=== PATIENT | male | born 1970 | race Caucasian/White ===

== ENCOUNTER 2016-10-18 01:06 | Emergency (ER) | payer SELFPAY ==
[~2016-10-18 01:06] MED LIST: CEPH500C3 PO; CYCL-36 PO; DICL50 PO; DILA2TAB4 PO; DOXY100T18 PO
[2016-10-18 01:09] VITALS: BP 131/86; PULSE 78; RESP 18; TEMP 98.4; O2SAT 96
[2016-10-18] MEDS ORDERED: CLINDAMYCIN PHOS 600 MG/4 ML VIAL IM ONE (02:15)
--- NOTE | 2016-10-18 02:15 | PD ---
HPI Chief Complaint: Injury Time Seen by Provider: 02:14 Travel History International Travel<30 days: No Contact w/Intl Traveler<30days: No Traveled to known affect area: No History of Present Illness HPI Patient comes in complaining of possible insect bite to his right index finger distal phalanx. Patient states this occurred 2 days ago. He states it seemed fine until today when it started becoming swollen and painful. Patient denies doing anything for this. Denies anything making it better or worse. Denies any radiation of pain. Denies any fevers. Reports his tetanus shot is up-to- date. Sclerae pain is throbbing like in nature. Denies any known injury/ trauma or previous episodes like this. PFSH Past Medical History Medical History: Denies Significant Hx Cancer: No Cardiovascular Problems: No Diminished Hearing: No Endocrine: No Genitourinary: No Immune Disorder: No Musculoskeletal: No Neurologic: No Psychiatric: No Reproductive: No Respiratory: No Past Surgical History Abdominal Surgery: No AICD: No Arteriovenous Shunt: No Cardiac Surgery: No Ear Surgery: No Endocrine Surgery: No Eye Surgery: No Genitourinary Surgery: No Gynecologic Surgery: Yes Insulin Pump: No Joint Replacement: No Oral Surgery: No Pacemaker: No Thoracic Surgery: No Other Surgery: Yes (3 SURGERIES TO RT ARM 20 TO SIMULAR ABSCESS) Social History Alcohol Use: Yes (RARE) Tobacco Use: Yes (1/2 PPD ) Substance Use: Yes (METHAMPHETAMINES USE IN PAST ) Allergies-Medications (Allergen,Severity, Reaction): Coded Allergies: No Known Allergies (Unverified , 10/16/13) Reported Meds & Prescriptions Reported Meds & Active Scripts Active Bactrim DS (Sulfamethoxazole-Trimethoprim) 800-160 Mg Tab 1 Tab PO BID Flexeril (Cyclobenzaprine HCl) 10 Mg Tab 10 Mg PO TID Voltaren (Diclofenac Sodium) 50 Mg Tabec 50 Mg PO TID Reported Dilaudid (Hydromorphone HCl) 2 Mg Tab 2 Mg PO Q4H PRN Doxycycline Monohydrate 100 mg 100 Mg Cap 100 Mg PO BID 10 Days Keflex (Cephalexin Monohydrate) 500 Mg Cap 500 Mg PO Q6 10 Days Review of Systems Except as stated in HPI: all other systems reviewed are Neg Physical Exam Narrative GENERAL: Well-developed, overly nourished, in no acute distress, and non-ill appearing. SKIN: Patient has what appears to be effective blister distal phalanx of his right index finger lateral aspect going into the padding. Patient reports tenderness. There is small amount of fluid collection underneath it. There is no crepitus or obvious deformity. Neurovascularly intact. Full range of motion affected finger. HEAD: Atraumatic. Normocephalic. EYES: Pupils equal and round. EOMI. No scleral icterus. No injection or drainage. ENT: No nasal bleeding or discharge. Mucous membranes pink and moist. NECK: Trachea midline. Supple. No nuclear rigidity. CARDIOVASCULAR: Capillary refill less than 2 seconds. RESPIRATORY: No accessory muscle use. No respiratory distress. MUSCULOSKELETAL: No obvious deformities. No clubbing. No cyanosis. No edema. Full range of motion. NEUROLOGICAL: Awake and alert. No obvious cranial nerve deficits. Motor grossly within normal limits. Normal speech. PSYCHIATRIC: Appropriate mood and affect; insight and judgment normal. Data Data Last Documented VS Vital Signs Date Time Temp Pulse Resp B/P Pulse Ox O2 Delivery O2 Flow Rate FiO2 10/18/16 01:09 98.4 78 18 131/86 96 Room Air Orders Wound Culture And Gram Stain (10/18/16 02:13) Clindamycin Inj (Cleocin Inj) (10/18/16 02:15) MDM Medical Decision Making Medical Screen Exam Complete: Yes Emergency Medical Condition: Yes Differential Diagnosis Paronychia, felon, infected blister, burn, other Narrative Course While in room patient Playing with blister on right index finger and ruptured it. Patient reports drainage from this that alleviate a lot of his pain symptoms. There is no evidence of necrotizing fasciitis at this time. There is no evidence of abscess. There is no evidence of local joint space involvement. The patient will be discharged on antibiotics. The patient was given signs and symptoms warnings for worsening infection, such as spreading of redness, increasing pain, and/or swelling, associated heat, or fever and instructed to return immediately if these signs or symptoms worsen. The patient is to follow up here in 12-24 hours for recheck. Sooner if worsens or as needed. The patient agrees with plan. Patient in no obvious distress upon re-evaluation. Patient was asked if they wanted to speak to my attending, which the patient did not wish to do at this time. Any questions/concerns in reference to patient diagnosis/condition discussed and clarified prior to patient's discharge. Reinforced sheer importance of close follow up here in12-24 hours for recheck. Instructed patient to return to ED immediately, if symptoms return/worsen. Pt showed understanding of above instructions. Further instructions and recommendations were detailed in discharge paperwork. Pt ambulated without difficulty out of ED at discharge. Diagnosis Primary Impression: Finger, blister, infected Patient Instructions: Blister (ED), General Instructions, Wound Infection (ED) Additional Instructions: Follow-up here in 12-24 hours for a recheck. Take all medication as prescribed. Keep wound dry and clean as possible using soap and water. Use Neosporin to promote healing. Do not soak or submerge wound. Return to the emergency department sooner if symptoms get worse. Med/Other Pt SpecificInfo: Prescription(s) given Scripts Cephalexin (Keflex)500 Mg Icc188 Mg PO Q8H #30 CAP Ref 0 Prov:Kathryn Mi DO 10/18/16 Sulfamethoxazole-Trimethoprim (Bactrim DS)800-160 Mg Tab1 Tab PO BID #20 TAB Ref 0 Prov:Kathryn Mi DO 10/18/16 Disposition: 01 DISCHARGE HOME Condition: Stable Vasu Blood Oct 18, 2016 02:15
[2016-10-18] MEDS ORDERED: BACT800T5 PO (03:00)
[2016-10-18] MEDS ORDERED: CEPH-460 PO (03:00)
== END 2016-10-18 04:52 | disposition home or self-care (01) ==
LOC: NEPD 01:06
DX: S60.420A Blister (nonthermal) of right index finger, initial encounter (principal); L08.9 Local infection of the skin and subcutaneous tissue, unspecified; B95.62 Methicillin resistant Staphylococcus aureus infection as the cause of diseases classified elsewhere; B95.0 Streptococcus, group A, as the cause of diseases classified elsewhere; F17.200 Nicotine dependence, unspecified, uncomplicated; X58.XXXA Exposure to other specified factors, initial encounter
CPT/HCPCS: 86403; 87070; 87186; 96372

== ENCOUNTER 2016-10-18 17:35 | Emergency (ER) | payer SELFPAY ==
[~2016-10-18 17:35] MED LIST changes: +BACT800T5 PO; +CEPH-460 PO
[2016-10-18 17:50] VITALS: BP 136/82; PULSE 68; RESP 20; TEMP 97.8; O2SAT 98
--- NOTE | 2016-10-18 18:00 | PD ---
Physical Exam Time Seen by Provider: 17:59 Narrative 46 y/o male here with intermittent chest pain since yesterday evening. Vital signs reviewed. Seen at triage desk. Awaiting bed placement. Data Data Last Documented VS Vital Signs Date Time Temp Pulse Resp B/P Pulse Ox O2 Delivery O2 Flow Rate FiO2 10/18/16 17:50 97.8 68 20 136/82 98 Room Air [facility] Medical Record Reviewed: Yes Supervised Visit with TORRIE: Jose Johnson Oct 18, 2016 18:00
--- NOTE | 2016-10-19 14:49 | EKG ---
Date Performed: 10/18/2016 Time Performed: 18:06:42 PTAGE: 46 years EKG: Sinus rhythm NORMAL ECG PREVIOUS TRACING : 08/26/2013 16.25 Compared to prior tracing no significant change DOCTOR: Ezra Hood Interpretating Date/Time 10/19/2016 14:47:15
== END 2016-10-18 18:35 | disposition left against medical advice (07) ==
LOC: NEDAMB 17:35
DX: R07.9 Chest pain, unspecified (principal)
CPT/HCPCS: 93005; 99281

== ENCOUNTER 2017-09-08 21:45 | Emergency (ER) | payer SELFPAY ==
[~2017-09-08] VITALS: Ht 180.3 cm; Wt 91.0 kg
[2017-09-08] MEDS ORDERED: IOHEXOL 350 MG/ML 10 ML VIAL (for RAD DIAG) IVCONTRAST ONE (21:46)
[2017-09-08 22:12] VITALS: RESP 18
--- NOTE | 2017-09-08 22:43 | PD ---
HPI Chief Complaint: Abdominal Pain Time Seen by Provider: 22:26 Travel History International Travel<30 days: No Contact w/Intl Traveler<30days: No Traveled to known affect area: No History of Present Illness HPI Patient is a 47-year-old male who presents the emergency room with complaints of "double hernia" pain. Patient reports that 2 months ago, he noticed that he had bilateral inguinal hernias, reports that he was seen in the residential and was told that when he was released, he should go "get it checked out and fix." Patient reports that he was released from the residential last week and would like to have his hernias surgically repaired today. Patient reports that he has been having increased pains to his hernia sites, denies any radiation of pain. Denies n/v with symptoms. Denies fever/chills. Reports that he has no insurance and needs to have this fixed here. PFSH Past Medical History Medical History: Denies Significant Hx Cancer: No Cardiovascular Problems: No Diminished Hearing: No Endocrine: No Genitourinary: No Immune Disorder: No Musculoskeletal: No Neurologic: No Psychiatric: No Reproductive: No Respiratory: No Tetanus Vaccination: < 5 Years Influenza Vaccination: No Past Surgical History Abdominal Surgery: No AICD: No Arteriovenous Shunt: No Cardiac Surgery: No Ear Surgery: No Endocrine Surgery: No Eye Surgery: No Genitourinary Surgery: No Gynecologic Surgery: Yes Insulin Pump: No Joint Replacement: No Oral Surgery: No Pacemaker: No Thoracic Surgery: No Other Surgery: Yes (3 SURGERIES TO RT ARM 20 TO SIMULAR ABSCESS) Social History Alcohol Use: Yes (RARE) Tobacco Use: Yes (1/2 PPD ) Substance Use: Yes (METHAMPHETAMINES USE IN PAST ) Allergies-Medications (Allergen,Severity, Reaction): Coded Allergies: *MDRO Multi-Drug Resistant Organism (Verified Adverse Reaction, Unknown, ) 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/18/16 Reported Meds & Prescriptions Reported Meds & Active Scripts Active Review of Systems General / Constitutional: No: Fever, Chills Eyes: No: Visual changes HENT: No: Headaches Cardiovascular: No: Chest Pain or Discomfort Respiratory: No: Shortness of Breath Gastrointestinal: No: Abdominal Pain Genitourinary: Positive: Other (bilateral inguinal hernia), No: Dysuria Musculoskeletal: No: Pain Skin: No Rash Neurologic: No: Weakness Psychiatric: No: Depression Endocrine: No: Polydipsia Hematologic/Lymphatic: No: Easy Bruising Physical Exam Narrative GENERAL: NAD SKIN: Focused skin assessment warm/dry. HEAD: Atraumatic. Normocephalic. EYES: Pupils equal and round. No scleral icterus. No injection or drainage. ENT: No nasal bleeding or discharge. Mucous membranes pink and moist. NECK: Trachea midline. No JVD. CARDIOVASCULAR: Regular rate and rhythm. No murmur appreciated. RESPIRATORY: No accessory muscle use. Clear to auscultation. Breath sounds equal bilaterally. GASTROINTESTINAL: Abdomen soft, non-tender, nondistended. Hepatic and splenic margins not palpable. : Exam performed with RN at bedside. Patient with reducible right-sided inguinal hernia, patient with a nonreducible left sided inguinal hernia with no signs of incarceration. MUSCULOSKELETAL: No obvious deformities. No clubbing. No cyanosis. No edema. NEUROLOGICAL: Awake and alert. No obvious cranial nerve deficits. Motor grossly within normal limits. Normal speech. PSYCHIATRIC: Appropriate mood and affect; insight and judgment normal. Data Data Last Documented VS Vital Signs Date Time Temp Pulse Resp B/P (MAP) Pulse Ox O2 Delivery O2 Flow Rate FiO2 09/08/17 22:12 18 Orders Orders Complete Blood Count With Diff (09/08/17 22:34) Comprehensive Metabolic Panel (09/08/17 22:34) Iv Access Insert/Monitor (09/08/17 22:34) Sodium Chloride 0.9% Flush (Ns Flush) (09/08/17 22:45) Acetaminophen (Tylenol) (09/08/17 23:15) Al-Mag Hy-Si 40-40-4 Mg/Ml Liq (Mag-Al P (09/08/17 23:15) Lidocaine 2% Viscous (Xylocaine 2% Visco (09/08/17 23:15) Ct Abd/Pel W Iv Contrast(Rout) (09/09/17 ) Iohexol 350 Inj (Omnipaque 350 Inj) (09/08/17 21:46) Labs Laboratory Tests Test 09/08/17 22:57 White Blood Count 6.8 TH/MM3 Red Blood Count 3.59 MIL/MM3 Hemoglobin 10.6 GM/DL Hematocrit 30.8 % Mean Corpuscular Volume 85.8 FL Mean Corpuscular Hemoglobin 29.6 PG Mean Corpuscular Hemoglobin Concent 34.5 % Red Cell Distribution Width 14.3 % Platelet Count 337 TH/MM3 Mean Platelet Volume 7.4 FL Neutrophils (%) (Auto) 67.4 % Lymphocytes (%) (Auto) 22.1 % Monocytes (%) (Auto) 9.3 % Eosinophils (%) (Auto) 0.6 % Basophils (%) (Auto) 0.6 % Neutrophils # (Auto) 4.5 TH/MM3 Lymphocytes # (Auto) 1.5 TH/MM3 Monocytes # (Auto) 0.6 TH/MM3 Eosinophils # (Auto) 0.0 TH/MM3 Basophils # (Auto) 0.0 TH/MM3 CBC Comment DIFF FINAL Differential Comment Blood Urea Nitrogen 7 MG/DL Creatinine 1.08 MG/DL Random Glucose 114 MG/DL Total Protein 7.1 GM/DL Albumin 3.3 GM/DL Calcium Level 8.5 MG/DL Alkaline Phosphatase 86 U/L Aspartate Amino Transf (AST/SGOT) 23 U/L Alanine Aminotransferase (ALT/SGPT) 28 U/L Total Bilirubin 0.4 MG/DL Sodium Level 141 MEQ/L Potassium Level 3.9 MEQ/L Chloride Level 106 MEQ/L Carbon Dioxide Level 26.5 MEQ/L Anion Gap 9 MEQ/L Estimat Glomerular Filtration Rate 73 ML/MIN MDM Medical Decision Making Medical Screen Exam Complete: Yes Emergency Medical Condition: Yes Medical Record Reviewed: Yes Interpretation(s) Vital Signs Date Time Temp Pulse Resp B/P (MAP) Pulse Ox O2 Delivery O2 Flow Rate FiO2 09/08/17 22:12 18 Differential Diagnosis Inguinal hernia, inguinal hernia incarceration Narrative Course 47-year-old male who presents the emergency room as he would like his inguinal hernia's repaired today. Discussed with patient that I cannot admit him to the hospital for bilateral inguinal hernia repairs, he will need to contact a general surgeon for this surgery as an outpatient. Given his severe pain, will rule out incarceration with ct of abdomen and pelvis. Last Impressions Abdomen/Pelvis CT 09/09/17 0000 Signed Impressions: CONCLUSION: 1. Moderate circumferential distal esophageal wall thickening. No other acute findings identified. 2. Bilateral inguinal hernias left greater than right with left-sided hernia c ontaining a loop of bowel. No bowel wall thickening and no evidence of obstruct ion. 3. Prominent amount of stool in the cecum in the right lower quadrant. CBC & BMP Diagram 09/08/17 22:57 Total Protein 7.1, Albumin 3.3 L, Calcium Level 8.5, Alkaline Phosphatase 86, Aspartate Amino Transf (AST/SGOT) 23, Alanine Aminotransferase (ALT/SGPT) 28, Total Bilirubin 0.4 CT the abdomen and pelvis with bilateral inguinal hernias containing a loop of bowel but no thickening or no evidence of obstruction. Patient was given instructions to follow-up with general surgeon if he would like to be inguinal hernias repaired. A copy of the CT report was given to him as he will need follow-up. Signs and symptoms of when to return to the emergency room was reviewed patient detail. Diagnosis Primary Impression: Inguinal hernia bilateral, non-recurrent Qualified Codes: K40.20 - Bilateral inguinal hernia, without obstruction or gangrene, not specified as recurrent Referrals: Jus Tamayo MD Patient Instructions: General Instructions Disposition: 01 DISCHARGE HOME Condition: Stable Kathryn Mi DO Sep 08, 2017 22:43
[2017-09-08] MEDS ORDERED: SODIUM CHLORIDE 0.9% FLUSH 10 ML FLUSH IV FLUSH PRN (22:45)
[2017-09-08 23:04] LABS: AUTOMATED NEUTROPHIL # 4.5 TH/MM3 (1.8-7.7); BASOPHIL % 0.6 % (0.0-2.0); EOSINOPHIL % 0.6 % (0.0-4.0); HEMATOCRIT 30.8 % (39.0-51.0); HEMOGLOBIN 10.6 GM/DL (13.0-17.0); LYMPH % 22.1 % (9.0-44.0); LYMPHOCYTE # 1.5 TH/MM3 (1.0-4.8); MEAN CELL VOLUME 85.8 FL (80.0-100.0); MEAN CORPUSCULAR HEMOGLOBIN 29.6 PG (27.0-34.0); MEAN CORPUSCULAR HGB CONC 34.5 % (32.0-36.0); MEAN PLATELET VOLUME 7.4 FL (7.0-11.0); MONO % 9.3 % (0.0-8.0); MONOCYTE # 0.6 TH/MM3 (0-0.9); NEUT % 67.4 % (16.0-70.0); PLATELET COUNT 337 TH/MM3 (150-450); RED BLOOD COUNT 3.59 MIL/MM3 (4.50-5.90); RED CELL DISTRIBUTION WIDTH 14.3 % (11.6-17.2); WHITE BLOOD COUNT 6.8 TH/MM3 (4.0-11.0)
[2017-09-08] MEDS ORDERED: ALUMINUM/MAGNESIUM/SIMETH 30 ML CUP PO ONE (23:15)
[2017-09-08] MEDS ORDERED: LIDOCAINE VISCOUS 2% SOLN 15 ML UDC PO ONE (23:15)
[2017-09-08] MEDS ORDERED: ACETAMINOPHEN 325 MG TAB PO ONE (23:15)
[2017-09-08 23:26] LABS: ALBUMIN 3.3 GM/DL (3.4-5.0); AST (GOT) 23 U/L (15-37); BICARBONATE 26.5 MEQ/L (21.0-32.0); BLOOD UREA NITROGEN 7 MG/DL (7-18); CALCIUM 8.5 MG/DL (8.5-10.1); CHLORIDE 106 MEQ/L (98-107); CREATININE 1.08 MG/DL (0.60-1.30); GLOMERULAR FILTRATION RATE 73 ML/MIN (>89); GLUCOSE,RANDOM 114 MG/DL (74-106); SODIUM (NA) 141 MEQ/L (136-145)
[2017-09-08 23:29] LABS: ALKALINE PHOSPHATASE 86 U/L (45-117); ALT (GPT) 28 U/L (12-78); TOTAL BILIRUBIN ADULT 0.4 MG/DL (0.2-1.0); TOTAL PROTEIN 7.1 GM/DL (6.4-8.2)
[2017-09-09] MEDS ORDERED: IOHEXOL 350 MG/ML 10 ML VIAL (for RAD DIAG) IVCONTRAST ONE
--- NOTE | 2017-09-09 01:02 | RADRPT ---
EXAM DATE: 09/09/2017 12:23 AM EDT AGE/SEX: 47 years / Male INDICATIONS: Bilateral lower abdomen pain. CLINICAL DATA: This is the patient's initial encounter. Patient reports that signs and symptoms have been present for 1 day and indicates a pain score of 8/10. MEDICAL/SURGICAL HISTORY: . Substance abuse . ORAL CONTRAST: No oral contrast ingested. RADIATION DOSE: 11.08 CTDI (mGy) COMPARISON: No prior exams available for comparison. TECHNIQUE: Multiple contiguous axial images were obtained through the abdomen and pelvis following b olus infusion of 95 ml Omnipaque 350 (iohexol) nonionic water-soluble contrast as a single exam dos e. No oral contrast ingested. Using automated exposure control and adjustment of the mA and/or kV ac cording to patient size, the radiation dose was kept as low as reasonably achievable to obtain optima l diagnostic quality images. FINDINGS: Lower Lungs: Mild atelectasis at the lung bases. Liver: Mild focal fat anteriorly near the falciform ligament. Otherwise homogeneous and within normal limits. Gallbladder collapsed. Spleen: Spleen upper limits of normal measuring 12 cm in craniocaudal dimension. No focal mass. Pancreas: Unremarkable without mass or calcification. Kidneys: Normal in size and shape. No evidence of mass or hydronephrosis. Adrenal Glands: Unremarkable. Aorta: The aorta and proximal iliac vessels are grossly unremarkable without aneurysmal dilation. Bowel/Mesentery: Marked circumferential wall thickening of the distal esophagus. No evidence of kareem l dilatation. No free air or free fluid. Large amount of stool is seen in the cecum. Appendix within normal limits. Abdominal Wall: Intact. Retroperitoneum: No evidence of adenopathy in the retrocrural, para-aortic, or deep pelvic regions. Bladder: Contours are smooth. Reproductive Organs: No abnormal masses or calcifications seen. Inguinal: Bilateral inguinal hernias. On the left the hernia contains a loop of bowel. No evidence o f bowel dilatation or wall thickening. Bony Structures: Unremarkable. CONCLUSION: 1. Moderate circumferential distal esophageal wall thickening. No other acute findings identified. 2. Bilateral inguinal hernias left greater than right with left-sided hernia containing a loop of abdirahman wel. No bowel wall thickening and no evidence of obstruction. 3. Prominent amount of stool in the cecum in the right lower quadrant. Electronically signed by: Bryan Yoder MD 09/09/2017 1:01 AM EDT
== END 2017-09-09 01:38 | disposition home or self-care (01) ==
LOC: NEPE 21:45
DX: K40.20 Bilateral inguinal hernia, without obstruction or gangrene, not specified as recurrent (principal); K22.9 Disease of esophagus, unspecified; F17.210 Nicotine dependence, cigarettes, uncomplicated
CPT/HCPCS: 74177; 80053; 85025; 99284; Q9967